=== PATIENT | female | born 1980 | race Caucasian/White ===

== ENCOUNTER 2017-12-08 21:28 | Observation (INO) ==
[2017-12-09] MEDS ORDERED: Naloxone 0.4 MG/ML INJ IVP PRN (00:29)
[2017-12-09] MEDS ORDERED: *HR* LORazepam 2 MG/ML VIAL IVP PRN (00:44)
[2017-12-09] MEDS ORDERED: Ketorolac 15 MG/ML VIAL IVP PRN (00:49)
--- NOTE | 2017-12-09 01:08 | Internal Med History&Physical ---
<TruongTacho benavides - Last Filed: 12/09/17 01:29> Date of Encounter: 12/09/17 Time of Encounter: 01:04 Assessment and Plan (1) Rhabdomyolysis Current visit: Yes Status: Acute 1. Trend CK and Lactic acid 2. IVF @ 150 mL/hr (0.9%NS w/ 20KCL) 3. Likely from drug and ETOH abuse but patient also reports frequent falls Qualifiers: Rhabdomyolysis type: non-traumatic Qualified Code(s): M62.82 - Rhabdomyolysis (2) Sciatica, right side Current visit: No Status: Acute 1. Chronic, sees pain management 2. Will give PRN Ultram and a Lidoderm patch 3. Social work consult for f/u to pain management 4. No acute neuro deficits but will consider imaging if pain persists/worsens (3) Lactic acidosis Current visit: Yes Status: Acute 1. 0.9% NS with 20mEq KCL @ 150 mL/hr 2. Trend lactate Q4 3. Suspect from rhabdo/cocaine use, denies any infectious symptoms (4) Alcohol withdrawal Current visit: Yes Status: Acute 1. Jozef Librium 50mg PO QID 2. CIWA with Ativan 3. IVF and MVI's Qualifiers: Complication of substance-induced condition: uncomplicated Qualified Code(s ): F10.230 - Alcohol dependence with withdrawal, uncomplicated (5) Substance abuse Current visit: Yes Status: Acute 1. UDS + for cocaine and patient admits to taking a few percocet off the street 2. Also abuses ETOH (6) Chest pain Current visit: Yes Status: Acute 1. Had CP/SOB earlier today where she states she was just anxious. 2. In setting of drug use, using wheelchair frequently, will check d-dimer to r/ o PE 3. Trop was normal and EKG normal, feel she is very low risk for ACS and has had no recurrence of symptoms. Qualifiers: Chest pain type: chest pain on breathing Qualified Code(s): R07.1 - Chest pain on breathing; R07.81 - Pleurodynia Internal Medicine - H&P: HPI Chief complaint: ETOH withdraw, R back pain Admitted From: Hospital to Hospital Transfer Plans for Post Hospital Care: Home History of present illness: Ms. Burleson is a 37 year old female with history of alcoholism and R sided sciatica presenting as a transfer from [place] ED for anxiety. patient states that her sciatica has been acting up for the last several months to the point to where she uses a wheelchair to get around most of the time. She states that she had been on Gabapentin and Buspar but ran out early and has been unable to get those refilled. States that she tried to see pain management , Dr. Celis but her request for injection was denied by insurance. The pain is right sided, sharp/stabbing in nature and radiates all the way down to her toes. She also has some associated scattered numbness in the RLE as well but this is not new. She's had some recent falls due to the leg pain. She states she doesn't always have someone at home to help her get around and she can't get up stairs at times. NO loss of bowel/bladder function. She presented to the [facility] ED today because she just became very overwhelmed and started having some centralized CP, SOB, palpitations, and nausea. Denies changes in vision, neck pain, vomiting, diarrhea, abdominal pain. Reports that is gone now and she just thinks she got really anxious. States that she just "flipped out." No h/o CAD. She also states her last drink was about 12 hours ago and she had 1 beer but at minimum, she drinks a 6-pack of beer per day but this significantly increases with any stressors in her life. She denies any other drug use. Past Med Surg Social Fam HX - Past Medical History Medical history: no medical history Psychiatric history: anxiety - Past Surgical History Additional surgical history: 2 abd lap procedures - Social History Smoking Status: Current every day smoker Smokeless Tobacco Status: No Alcohol use: heavy, recent Drug use: none Internal Medicine - H&P: Meds Chlordiazepoxide [Librium] 25 mg PO TID #6 capsule 04/17/16 [Rx] Nitrofurantoin Monohyd/M-Cryst [Macrobid 100 mg Capsule] 100 mg PO BID #14 capsule 04/17/16 [Rx] 3 Allergy/AdvReac Type Severity Reaction Status Date / Time Sulfa (Sulfonamide AdvReac Vomiting Verified 04/17/16 00:39 Antibiotics) Tetracycline AdvReac Hives Verified 04/17/16 00:39 Tetracyclines AdvReac Hives Verified 10/26/16 00:39 All Systems PM: A 10-system review of systems was performed and is negative for pertinent findings except as documented above in the HPI. Review of systems: As reviewed in the HPI. All other systems reviewed are negative or normal. - Constitutional Vitals: Temp Pulse Resp BP Pulse Ox 98.6 F 116 16 150/90 98 12/09/17 00:20 12/09/17 00:20 12/09/17 00:20 12/09/17 00:20 12/09/17 00:20 General appearance: Present: cooperative, A&O X 3 - Head Head exam: Present: atraumatic, normocephalic - Eye Eye exam: Present: PERRL, conjuntiva pink, sclera anicteric Pupils: Present: PERRL - Neck Neck exam general surgery: Present: supple, trachea midline. Absent: lymphadenopathy - Respiratory Respiratory exam: Present: CTAB. Absent: accessory muscle use, rales, rhonchi, wheezes - Cardiovascular Cardiovascular exam: Present: RRR, +S1, +S2. Absent: diastolic murmur, gallop, rubs, systolic murmur - GI/Abdominal GI/Abdominal exam: Present: normal bowel sounds, soft, no peritoneal signs. Absent: distended, tenderness - Extremities Exam Extremities exam: Present: normal capillary refill, warm, radial pulses palpable and symmetrical. Absent: calf tenderness, cyanotic, normal inspection (scattered bruising on upper extremities ), pedal edema - Back Exam Back exam: Present: paraspinal tenderness (R). Absent: CVA tenderness (R), vertebral tenderness - Expanded Back Exam Back exam: positive straight leg raise: Right - Neurological Exam Neurological exam: Present: alert, CN II-XII intact, oriented X3, no focal deficits, strengths equal and symetr throughout (somewhat limited in RLE due to pain in back ) - Psychiatric Psychiatric exam: Present: anxious - Skin Skin exam: Present: abrasion (arms), dry, intact <Azar Lovett - Last Filed: 12/09/17 02:45> Date of Encounter: 12/09/17 Time of Encounter: 01:20 Past Med Surg Social Fam HX - Family History Mother History Unknown: Yes Father History Unknown: Yes - Constitutional Constitutional: no chills, no fever(s), no night sweats - EENT Eyes: no blurry vision, no change in vision Ears: no ear pain, no tinnitus Nose, mouth and throat: no nasal congestion, no sinus pressure, no sore throat - Cardiovascular Cardiovascular ROS IM: chest pain, dyspnea, palpitations, no edema, no orthopnea , no syncope - Respiratory Respiratory: no cough, no hemoptysis, no chest congestion, no excessive phlegm production, no change in phlegm color - Gastrointestinal Gastrointestinal: no abdominal pain, no diarrhea, no hematemesis, no hematochezia, no melena, no nausea, no vomiting - Genitourinary Genitourinary: no dysuria, no flank pain, no hematuria - Musculoskeletal Musculoskeletal ROS IM: arthralgias, back pain, muscle cramps, myalgias - Integumentary Integumentary IM: no rash, no jaundice - Neurological Neurological ROS: radicular pain, no focal weakness, no frequent falls, no headache(s), no weakness - Psychiatric Psychiatric: anxiety, behavioral changes, irritability, panic attacks - Endocrine Endocrine IM: no polydipsia, no polyuria - Constitutional Vitals: Temp Pulse Resp BP Pulse Ox 98.6 F 106 20 164/97 97 12/09/17 00:20 12/09/17 02:00 12/09/17 02:00 12/09/17 02:00 12/09/17 02:00 General appearance: Present: disheveled, A&O X 3 Exam: anxious, nervous, jittery at times - Head Head exam: Present: atraumatic - Eye Eye exam: Present: EOMI, PERRL (pupils appear dilated ~ 5 - 6 mm). Absent: scleral icterus - ENT ENT exam: Present: mucous membranes dry, normal exam - Neck Neck exam general surgery: Present: full ROM, supple. Absent: tenderness, nuchal rigidity, thyromegaly - Respiratory Respiratory exam: Present: CTAB. Absent: rales, rhonchi, wheezes - Cardiovascular Cardiovascular exam: Present: RRR, +S1, +S2. Absent: systolic murmur - GI/Abdominal GI/Abdominal exam: Present: normal bowel sounds, soft. Absent: tenderness - Extremities Exam Extremities exam: Present: normal capillary refill, warm, radial pulses palpable and symmetrical. Absent: calf tenderness, pedal edema, tenderness - Back Exam Back exam: Absent: CVA tenderness (L), CVA tenderness (R) - Neurological Exam Neurological exam: Present: no focal deficits Additional comments: anxious, nervous, moving all four extremities - Psychiatric Psychiatric exam: Present: agitated (mild), anxious - Skin Skin exam: Present: dry, warm Internal Med - H&P Results - Labs Labs: D-Dimer 4056 Repeat Lactate 1.0 Repeat CK 1089 - Attending Attestation I discussed the patient [facility], past medical history, review of systems, lab data in [place], and treatment plan with Dr. Sandoval. I then saw and examined patient independently. Upon my assessmentof the patient, she is quite anxious appearing, nervous, and a little jittery. She appears to be exhibiting some early signs of alcohol withdrawal. She denies any significant trauma to her legs or arms or body, but she has been falling a little bit lately. She states she has been wheelchair-bound the last 2 months and has not been ambulating much at all due to her severe sciatica. Given her lack of mobility, chest pain , shortness of breath, and lactic acidosis upon presentation at [facility], I discussed with Dr. Sandoval the possibility of DVT/PE. We ordered a d-dimer, and it was actually quite elevated. As such, we are ordering heparin drip, CT angiogram of the chest and Dopplers of her legs. I suspect the lactic acidosis and d-dimer are likely due to falling, cocaine abuse, and likely other drug abuse. Nonetheless, there is a suspicion of PE given her lack of mobility and wheelchair bound state. Therefore, we will proceed with heparin drip and imaging as above. Meanwhile, regarding her alcohol withdrawal, we are scheduling her on Librium and treting her with CIWA protocol. If she fails this measure, then she will likely need Precedex drip. I inquired about her alcohol intake, and she states that she drinks roughly 6-12 beers on a good day and 12-24 on a bad day. Despite this report of alcohol intake, I think she severely underestimates her intake. She denies any use of cocaine but she admits occasional use of Percocet on the street. SHe can not explain the + UDS for cocaine. We will continue treatment as noted above with CIWA, Librium, and, if necessary , Precedex drip. For now, we will continue heparin drip until we can rule out DVT/PE. If she remains stable with regards to withdrawal standpoint, she can likely move out of the ICU the next 12-24 hours. Other than my comments above and noted physical exam findings, I agree with Dr. Sandoval's assessment and plan.
[2017-12-09] MEDS: *HR* LORazepam 2 MG/ML VIAL IVP PRN ×4 (01:57→22:55)
[2017-12-09] MEDS: 0.9 % Sodium Chloride w KCl 20 MEQ/1,000 ML MLS IVC SCH ×3 (02:01→16:40)
[2017-12-09] MEDS ORDERED: Isovue-370 500 ML INFUS..BTL IV ONE (02:12)
[2017-12-09] MEDS ORDERED: *HR* Heparin 5,000 UNIT/ML VIAL IVP PRN ×2 (02:12)
[2017-12-09] MEDS ORDERED: *HR* Heparin 5,000 UNIT/ML VIAL IVP ONE (02:12)
[2017-12-09] MEDS ORDERED: Heparin 25,000 UNIT/500 ML D5W 25,000 UNIT/500 ML BAG IVC SCH (02:15)
[2017-12-09 02:43] LABS: INR 1.1; Prothrombin Time 11.6 Seconds (9.4-12.1)
[2017-12-09 02:46] LABS: Activated Partial Thrombo Time 27.4 Seconds (26.0-36.0)
[2017-12-09 05:36] LABS: Basophils % 0.1 %; Hematocrit 34.2 % (35.3-44.9); Hemoglobin 12.1 g/dL (11.5-15.4); Immature Granulocytes % 0.5 % (0-4); Lymphocytes # 0.7 K/mcL (0.6-4.6); Lymphocytes % 5.7 %; Mean Corpuscular HGB Conc 35.4 g/dL (31.6-35.5); Mean Corpuscular Hemoglobin 34.1 pg (28.0-33.3); Mean Corpuscular Volume 96.3 fL (83.0-100.0); Mean Platelet Volume 9.4 fL (9.4-12.4); Monocytes # 0.2 K/mcL (0.0-1.3); Neutrophils # 10.4 K/mcL (1.6-8.9); Platelet Count 199 K/mcL (140-400); Red Blood Count 3.55 M/mcL (3.82-4.97); Red Cell Distribution Width 14.7 % (11.5-14.5); Segmented Neutrophils % 91.7 %
[2017-12-09 05:52] LABS: Amphetamine Screen,Urine Negative ng/mL (Cutoff=1000); Barbiturate Screen,Urine Negative ng/mL (Cutoff=200); Benzodiazepines Screen,Urine Negative ng/mL (Cutoff=200); Cannabinoid Screen,Urine Negative ng/mL (Cutoff = 50); Cocaine Screen,Urine Negative ng/mL (Cutoff= 300); Opiate Screen,Urine Negative ng/mL (Cutoff=300)
[2017-12-09] MEDS: Famotidine 20 MG/2 ML VIAL IVP SCH ×2 (05:53→16:40)
[2017-12-09 05:54] LABS: BUN/Creatinine Ratio 11 (6-26); Blood Urea Nitrogen 6 mg/dL (6-20); Calcium 7.8 mg/dL (8.6-10.3); Carbon Dioxide 16 mEq/L (23-29); Chloride 108 mEq/L (98-107); Creatine Kinase 984 Units/L (30-223); Glucose 151 mg/dL (70-105); Osmolality,Calculated 283 (280-300); Potassium 3.7 mEq/L (3.5-5.1); Sodium 136 mEq/L (136-145); eGFR For African Americans > 60 (> 60); eGFR For Non-African Americans > 60 (> 60)
[2017-12-09] MEDS ORDERED: *HR* Heparin 5,000 UNIT/ML VIAL SQ SCH ×2 (06:00→18:00)
--- NOTE | 2017-12-09 07:42 | Event Note ---
Date of Encounter: 12/09/17 Time of Encounter: 07:40 Seen and assessed. Agree with plan per nightime hospitalist. Continue IV fluids for rhabdomyolysis, [place] protocol for alcohol withdrawal. F/U CT chest and doppler to r/o PE/DVT
[2017-12-09] MEDS: traMADol 50 MG TABLET PO PRN ×2 (09:02→16:40)
[2017-12-09] MEDS ORDERED: Thiamine (B-1) 100 MG, Folic Acid 1 MG, MVI, adult with vitamin K 10 ML in 0.9 % Sodi... IVPB SCH (18:00)
[2017-12-10 00:47] VITALS: BP 169/102
--- NOTE | 2017-12-10 16:23 | Discharge Summary ---
Date of Encounter: 12/10/17 Time of Encounter: 16:00 - Discharge Diagnosis (1) Alcohol withdrawal Priority: Primary Status: Acute Assessment and Plan: 37 year old female with history of alcoholism and R sided sciatica presenting as a transfer from [place] ED for anxiety. patient states that her sciatica has been acting up for the last several months to the point to where she uses a wheelchair to get around most of the time. Sh was assessed with alcohol withdrawal based on her tremors and rhabdomyolysis. She was started on CIWA protocol and IV fluids. She had an elevated d dimer on admission and a CT scan was done which came back negative for PE and venous dopplers negative for DVT. Patient signed out AMA at 2am on 12/10. She said she had stuff to do that she couldn't accomplish in the hospital Qualifiers: Complication of substance-induced condition: uncomplicated Qualified Code(s ): F10.230 - Alcohol dependence with withdrawal, uncomplicated Hospital course: Ms. Burleson is a 37 year old female - Time Spent with Patient Total time spent providing and/or coordinating discharge services: - Discharge Medications Home Medications: Buspirone HCl [Buspar] 7.5 mg PO TID PRN 12/09/17 [History] Gabapentin [Neurontin] 400 mg PO TID 12/09/17 [History] Ibuprofen [Ibu] 800 mg PO TID 12/09/17 [History] Allergies/Adverse Reactions: 3 Allergy/AdvReac Type Severity Reaction Status Date / Time Sulfa (Sulfonamide AdvReac Vomiting Verified 12/09/17 10:11 Antibiotics) Tetracycline AdvReac Hives Verified 12/09/17 10:11 Tetracyclines AdvReac Hives Verified 12/09/17 10:11 Date of admission: 12/09/17 00:19 Primary care physician: Brice Stevenson CNP Consults: 12/09/17 00:44 Consult to Cash Posting Specialist [CONS] Routine Reason for SW Consult: ETOH, pain management - Constitutional Vitals: Temp Pulse Resp BP Pulse Ox 97.9 F 117 15 169/102 100 12/10/17 00:46 12/10/17 00:46 12/10/17 00:46 12/10/17 00:46 12/10/17 00:46 General appearance: Present: disheveled, A&O X 3 - Head Head exam: Present: atraumatic, normocephalic - Eye Eye exam: Present: PERRL, conjuntiva pink, sclera anicteric Pupils: Present: PERRL - Neck Neck exam general surgery: Present: supple, trachea midline. Absent: lymphadenopathy - Respiratory Respiratory exam: Present: CTAB. Absent: accessory muscle use, rales, rhonchi, wheezes - Cardiovascular Cardiovascular exam: Present: RRR, +S1, +S2. Absent: diastolic murmur, gallop, rubs, systolic murmur - GI/Abdominal GI/Abdominal exam: Present: normal bowel sounds, soft, no peritoneal signs. Absent: distended, tenderness - Extremities Exam Extremities exam: Present: warm, radial pulses palpable and symmetrical. Absent : calf tenderness, cyanotic, pedal edema - Neurological Exam Neurological exam: Present: CN II-XII intact, oriented X3, no focal deficits. Absent: pronater drift, facial droop, speech deficit - Skin Skin exam: Present: dry, intact - Patient Status Disposition: Left Against Medical Advice Condition: Good - Discharge Instructions Follow Up With: Brice Stevenson, PERSONNEL WORKER [Primary Care Provider] -
[2017-12-10 18:36] LABS: Phencyclidine Screen,Urine Negative ng/mL (Cutoff=25)
== END 2017-12-10 02:45 | disposition left against medical advice (07) ==
LOC: ICNU → 3ANU 12-09 18:18
PROVIDERS: ADMIT Student in an Organized Health Care Education/Training Program; ATTEND Family Medicine